=== PATIENT | female | born 1955 | race African-American/Black ===

== ENCOUNTER 2016-08-07 11:53 | Emergency (ER) | payer OTHER ==
--- NOTE | ~2016-08-07 | CR181 ---
[facility] A Service of [facility] & [facility] RADIOLOGY TEXT RESULTS PATIENT: KEYSHA RAMIREZ LOCATION: SED : 57 UNIT #: [id number] AGE: [address]: Gene Garcia SEX: F ORDER DR: [id number] [place] [id number] E MR#: [id number] Acc #: [id number] NAME: KEYSHA RAMIREZ : 1955 SEX: F STUDY DATE/TIME: 08/07/2016 10:58 UNIT: SED ROOM: STUDY DESCRIPTION: CR Lumbar Spine 2 or 3 Views Attending Physician: Gene Garcia P.A.-C. Ordering Physician: Gene Garcia P.A.-C. Primary Care Physician: No Primary Care Physician MEDICAL IMAGING REPORT This report is preliminary unless electronic signature is present. EXAM Lumbar spine series 3 views 08/07/2016 HISTORY Back and right leg pain for 3 days. FINDINGS There is a mild dextroscoliosis and there is some lower lumbar facet arthropathy and lesser discogenic change but no fracture and no romelia or retrolisthesis. Incidental note made of a large calcification on the right which is likely either a gallstone or a rim-calcified renal cyst or even possibly a calcified gallbladder. It measures about 5.5 x 4.5 cm. Dictated by... Reagan Samuel M.D. THIS IS AN ELECTRONICALLY VERIFIED REPORT Reagan Samuel M.D. at 08/07/2016 3:50 PM TEV/roosevelt TD: 08/07/2016 13:40 JOB #: [id number] MEDICAL IMAGING REPORT Page 1 of 1
--- NOTE | ~2016-08-07 | CR151 ---
[facility] A Service of [facility] & [facility] RADIOLOGY TEXT RESULTS PATIENT: KEYSHA RAMIREZ LOCATION: SED : 57 UNIT #: [id number] AGE: [address]: Gene Garcia SEX: F ORDER DR: [id number] [place] [id number] E MR#: [id number] Acc #: [id number] NAME: KEYSHA RAMIREZ : 1955 SEX: F STUDY DATE/TIME: 08/07/2016 10:58 UNIT: SED ROOM: STUDY DESCRIPTION: CR Hip Min 2 Views Rt Attending Physician: Gene Garcia P.A.-C. Ordering Physician: Gene Garcia P.A.-C. Primary Care Physician: No Primary Care Physician MEDICAL IMAGING REPORT This report is preliminary unless electronic signature is present. EXAM AP pelvis and frog view right hip, 08/07/16 HISTORY Right leg pain for 3 days COMPARISON STUDIES None FINDINGS Normal. Dictated by... Reagan Samuel M.D. THIS IS AN ELECTRONICALLY VERIFIED REPORT Reagan Samuel M.D. at 08/07/2016 3:50 PM INES/inés TD: 08/07/2016 13:33 JOB #: [id number] MEDICAL IMAGING REPORT Page 1 of 1
--- NOTE | ~2016-08-07 | US85 ---
[facility]. [facility] A Service of [facility] & [facility] RADIOLOGY TEXT RESULTS PATIENT: KEYSHA RAMIREZ LOCATION: SED : 57 UNIT #: [id number] AGE: [address]: Gene Garcia SEX: F ORDER DR: [id number] [address] [address] [id number] E MR#: [id number] Acc #: [id number] NAME: KEYSHA RAMIREZ : 1955 SEX: F STUDY DATE/TIME: 08/07/2016 11:39 UNIT: SED ROOM: STUDY DESCRIPTION: [facility] [employer] [facility] Attending Physician: Geen Garcia P.A.-C. Ordering Physician: Gene Garcia P.A.-C. Primary Care Physician: No Primary Care Physician MEDICAL IMAGING REPORT This report is preliminary unless electronic signature is present. EXAM Right lower extremity venous ultrasound HISTORY Right lower extremity pain for 3 days. FINDINGS The examination was somewhat limited by the patient's size. The venous structures of the right lower extremity were evaluated and there appeared to be compression and flow at every level. IMPRESSION No DVT is identified in the right lower extremity. The study is slightly limited by patient size Dictated by... José Miguel Ding M.D. THIS IS AN ELECTRONICALLY VERIFIED REPORT José Miguel Ding M.D. at 08/07/2016 1:54 PM SHARONDA/roosevelt TD: 08/07/2016 13:51 JOB #: [id number] MEDICAL IMAGING REPORT Page 1 of 1
[2016-08-07 11:31] LABS: URINE SOURCE CLEAN CATCH
[2016-08-07 11:36] LABS: URINE APPEARANCE CLEAR; URINE BILIRUBIN NEG (NEG); URINE BLOOD NEG (NEG); URINE COLOR YELLOW; URINE GLUCOSE 100 MG/DL (NORM); URINE KETONE NEG (NEG); URINE LEUKOCYTE ESTERASE NEG (NEG); URINE NITRATE NEG (NEG); URINE PH 5.5 (5-8); URINE PROTEIN NEG (NEG); URINE UROBILINOGEN 0.2 MG/DL (NORM)
[2016-08-07 11:44] LABS: MICRO INDICATED? NO
[~2016-08-07 11:53] MED LIST: BACTRIM DS TABL1 TAB PO; CHOLESTEROL; CLARITIN10 MG PO; DIAZEPAM PO; E-MYCIN250 MG PO; HUMALOG100 U/M1; LISINOPRIL; LORTAB 10/500 T1 TAB PO; NIFEREX-150150 MG PO; PHENERGAN W/CO120 ML PO; PRILOSEC PO; RONDEC DROPS30 ML PO; RONDEC-DM ORAL30 ML PO; ZITHROMAX PO; [UNRECOGNIZED DRUG - REMARK] PO
== END 2016-08-07 12:55 | disposition home or self-care (01) ==
LOC: SED 11:53
PROVIDERS: Physician Assistant
DX: M79.604 Pain in right leg (principal); I10 Essential (primary) hypertension; E11.9 Type 2 diabetes mellitus without complications; Z88.2 Allergy status to sulfonamides; Z79.899 Other long term (current) drug therapy
CPT/HCPCS: 72100; 73502; 81003; 82947; 93971; 99284